=== PATIENT | female | born 1980 | race Caucasian/White ===

== ENCOUNTER 2020-07-29 17:41 | Emergency (ER) | payer OTHER ==
[~2020-07-29] VITALS: Ht 162.6 cm; Wt 81.2 kg
[2020-07-29] MEDS ORDERED: DICL50TA2 PO (17:49)
[2020-07-29] MEDS ORDERED: TOPA50TA8 PO (17:49)
[2020-07-29] MEDS ORDERED: NS 1,000 ML IV ONE (18:15)
[2020-07-29] MEDS ORDERED: ACETAMINOPHEN 500 MG TAB PO ONE (18:15)
[2020-07-29] MEDS ORDERED: METOCLOPRAMIDE INJ 10MG/2ML VIAL (J2765 PER 1) IV ONE (18:15)
[2020-07-29] MEDS ORDERED: diphenhydrAMINE 50MG/ML VIAL (J1200) IV ONE (18:15)
[2020-07-29 18:53] LABS: BASO # 0.1 10^3/uL (0.0-0.2); BASO % 0.9 % (0.0-1.0); EOS # 0.5 10^3/uL (0.0-0.5); EOS % 5.3 % (0.0-3.0); HEMATOCRIT 39.3 % (36.0-47.0); HEMOGLOBIN 12.9 g/dl (12.0-15.5); LYMPH # 3.4 10^3/uL (1.5-5.0); LYMPH % 33.4 % (24.0-44.0); MEAN CORPUSCULAR HEMOGLOBIN 30.2 pg (27.0-33.0); MEAN CORPUSCULAR HGB CONC 32.8 g/dl (32.0-36.5); MONO # 0.6 10^3/uL (0.0-0.8); MONO % 6.1 % (0.0-5.0); NEUTROPHILS # 5.5 10^3/uL (1.5-8.5); PLATELET COUNT, AUTOMATED 229 10^3/uL (150-450); RED BLOOD COUNT 4.27 10^6/uL (4.00-5.40); WHITE BLOOD COUNT 10.2 10^3/uL (4.0-10.0)
[2020-07-29 19:23] LABS: ERYTHROCYTE SEDIMENTATION RATE 9 mm/hr (0-20)
--- NOTE | 2020-07-29 19:43 | REPVR ---
PROCEDURE INFORMATION: Exam: CT Head Without Contrast Exam date and time: 07/29/2020 7:07 PM Age: 39 years old Clinical indication: Pain; Headache; Additional info: Severe headache 3 months TECHNIQUE: Imaging protocol: Computed tomography of the head without contrast. Radiation optimization: All CT scans at this facility use at least one of these dose optimization techniques: automated exposure control; mA and/or kV adjustment per patient size (includes targeted exams where dose is matched to clinical indication); or iterative reconstruction. COMPARISON: No relevant prior studies available. FINDINGS: Limitations: There are no sagittal or coronal reformatted images. Brain: No mass, mass effect, parenchymal hemorrhage, or evidence of large acute infarct. No asymmetric sulcal effacement or loss of the hernández-white interface. No extra-axial hemorrhage. There are calcifications in the basal ganglia bilaterally. Ventricles: There is no hydrocephalus. Basal cisterns are patent. No midline shift. Bones/joints: Unremarkable. No acute fracture. Paranasal sinuses: Visualized sinuses are unremarkable. No fluid levels. Mastoid air cells: Visualized mastoid air cells are well aerated. Soft tissues: Unremarkable. IMPRESSION: 1. No acute intracranial abnormality. Electronically signed by: Gisselle Foote On 07/29/2020 19:43:04 PM
[2020-07-29] MEDS ORDERED: MAG SULF 1GM/100ML (MAG RUN) 1 GM in IV 1 EA IV ONE (19:45)
[2020-07-29] MEDS ORDERED: dexameTHASONE 4 MG/ML 1ML VIAL (J1100 PER 1MG) IV ONE (19:45)
[2020-07-29 20:30] VITALS: BP 106/52
== END 2020-07-29 21:12 | disposition home or self-care (01) ==
LOC: M ED 17:41
DX: G43.119 Migraine with aura, intractable, without status migrainosus (principal); F41.9 Anxiety disorder, unspecified; Z88.1 Allergy status to other antibiotic agents; Z88.2 Allergy status to sulfonamides; F17.210 Nicotine dependence, cigarettes, uncomplicated
CPT/HCPCS: 70450; 80047; 84702; 85025; 85652; 86140; 96361; 96374; 96375; 99284; J1100; J1200; J2765; J3475

== ENCOUNTER → 2020-09-28 | Outpatient (CLI) | payer OTHER ==
[~2020-09-28] MED LIST: DICL50TA2 PO; TOPA50TA8 PO
--- NOTE | 2020-10-16 02:26 | ECWPNPC ---
PATIENT NAME: ITZEL ABEL : 1980 GENDER: FEMALE VISIT DATE: 09/28/2020 DISCHARGE DATE: 09/28/20 1637 VISIT LOCKED DATE TIME: PHYSICIAN: CHARLES MOSS MD RESOURCE: CHARLES MOSS MD REASON FOR APPOINTMENT 1. PRE SEDATE - SPINAL TAP HISTORY OF PRESENT ILLNESS DEPRESSION SCREENING: PHQ-9 LITTLE INTEREST OR PLEASURE IN DOING THINGSSEVERAL DAYS FEELING DOWN, DEPRESSED, OR HOPELESSSEVERAL DAYS TROUBLE FALLING OR STAYING ASLEEP, OR SLEEPING TOO MUCHNEARLY EVERY DAY FEELING TIRED OR HAVING LITTLE ENERGYMORE THAN HALF THE DAYS POOR APPETITE OR OVEREATING MORE THAN HALF THE DAYS FEELING BAD ABOUT YOURSELF-OR THAT YOU ARE A FAILURE OR HAVE LET YOURSELF OR YOUR FAMILY DOWN SEVERAL DAYS TROUBLE CONCENTRATING ON THINGS, SUCH READING THE NEWSPAPER OR WATCHING TELEVISION MORE THAN HALF THE DAYS MOVING OR SPEAKING SO SLOWLY THAT OTHER PEOPLE COULD HAVE NOTICED. OR THE OPPOSITE- BEING SO FIDGETY OR RESTLESS THAT YOU HAVE BEEN MOVING AROUND A LOT MORE THAN USUALSEVERAL DAYS THOUGHTS THAT YOU WOULD BE BETTER OFF , OR OF HURTING YOURSELF IN SOME WAY?NOT AT ALL TOTAL SCORE:13 INTERPRETATIONMODERATE DEPRESSION PHQ-2 (2015 EDITION) LITTLE INTEREST OR PLEASURE IN DOING THINGS?SEVERAL DAYS FEELING DOWN, DEPRESSED, OR HOPELESS?SEVERAL DAYS TOTAL SCORE2 GENERAL: 40-YEAR-OLD FEMALE PATIENT WITH A HISTORY OF CHRONIC HEADACHES. SHE HAS BEEN SUFFERING FROM THIS FOR MANY YEARS. THE PATIENT STATES THAT IN MARCH OF THIS YEAR, SHE HAD A WEIRD SENSATION COME OVER HER AND THE RIGHT SIDE OF HER FACE FELT LIKE IT WENT NUMB AND SHE HAD A TINGLING SENSATION. THAT SAME SENSATION HAS BEEN ON THE RIGHT SIDE OF HER BODY AND SHE HAS HAD A CONSTANT HEADACHE THAT IS DIFFERENT FROM HER NORMAL MIGRAINES AND IT IS CONSTANT THAT CHANGES IN INTENSITY. SHE HAD AN X-RAY OF HER NECK AFTER THAT INSISTENT THAT CAME BACK NORMAL. SHE HAS HAD AN ABNORMAL LUMBAR PUNCTURE IN THE PAST. SHE WAS REFERRED BY DR. CORONADO FOR A SPINAL TAP. THE PATIENT HAS A HISTORY OF A BACK SURGERY AND SHE IS BEING FOLLOWED BY DR. FISHER. PATIENT DENIES UNEXPLAINABLE WEIGHT LOSS, FEVER, CHILLS, NEW CHANGES ON URINARY OR BOWEL CONTROL. FALL RISK SCREENING: SCREENING :NO FALLS REPORTED IN THE LAST YEAR PAIN SCREENING: PATIENT HAS A COMPLAINT OF ACUTE OR CHRONIC PAIN :YES LOCATION OF PAIN:HEAD, LOW BACK, LEG(S) INTENSITY OF PAIN (SCALE OF 1 TO 10):6 WHAT DOES YOUR PAIN FEEL LIKE:ACHING DURATION:CONTINOUS, CONSTANT PAIN IS INCREASED BY:ACTIVITIES PAIN IS DECREASED BY:SITTING TREATMENT/MEDICATIONS USED TO MANAGE PAIN:NONE LEVEL OF RELIEF FROM PAIN TREATMENTS IN THE PAST:0% PAIN HAS INTERFERED WITH THE FOLLOWING:BATHING/DRESSING, WALKING ABILITY, SLEEP, TRANSPORTATION, TOILETING NURSING NOTE: - BEHAVIORAL HEALTH WALK IN SHEET GIVEN TO DR MOSS TO GIVE TO PT. PAIN CENTER INTAKE QUESTIONS: DO YOU HAVE A HISTORY OF MRSA? :NO DO YOU TAKE A BLOOD THINNERS? :NO DO YOU HAVE ANY BLEEDING DISORDERS? :NO ANY NEW NUMBNESS OR WEAKNESS IN YOUR LEGS OR ARMS? :YES RIGHT ARM AND LEG ANY PACEMAKER,DEFIBRILLATOR, OR DORSAL COLUMN STIMULATOR? :NO DO YOU HAVE ANY RASHES OR OPEN SORES? :NO ARE YOU ALLERGIC TO IV DYE? :NO ARE YOU DIABETIC? :NO ANY NEW PROBLEMS WITH YOUR MEDICATIONS? :NO HAVE YOU RECEIVED A VACCINE IN THE PAST 30 DAYS? :NO DO YOU PLAN TO RECEIVE A VACCINE IN THE NEXT 21 DAYS? :NO DO YOU NEED ANY PRESCRIPTION? :NO DO YOU TAKE ANY IMMUNOSUPPRESSIVE MEDICATIONS? :NO IS THERE A CHANCE YOU COULD BE ? :NO ARE YOU BREAST FEEDING? :NO CURRENT MEDICATIONS TAKING TOPAMAX 200 MG TABLET 150MG ORALLY BID TAKING DICLOFENAC POTASSIUM 50 MG TABLET 1 TABLET ORALLY TWICE A DAY MEDICATION LIST REVIEWED AND RECONCILED WITH THE PATIENT PAST MEDICAL HISTORY MIGRAINES PTSD ANXIETY/DEPRESSION TINNITIS SLEEP APNEA ADHD IBS ALLERGIES SULFA (FOR ALLERGY USE ONLY): HIVES - ALLERGY SURGICAL HISTORY LAMINECTOMY OOPHERECTOMY C SECTION D & C FAMILY HISTORY FATHER: UNKNOWN MOTHER: ALIVE 1 SISTER(S) . 2 SON(S) - HEALTHY. SOCIAL HISTORY GENERAL: TOBACCO USE ARE YOU A:CURRENT SMOKER ARE YOU INTERESTED IN QUITTING?THINKING ABOUT QUITTING COUNSELED THE PATIENT ON SMOKING CESSATION, EDUCATION [id number]/20/2020 LATEX QUESTIONNAIRE LATEX ALLERGY : HAVE YOU EVER DEVELOPED ANY TYPE OF REACTION AFTER HANDLING LATEX PRODUCTS SUCH RUBBER GLOVES, CONDOMS, DIAPHRAGMS, BALLOONS, SOCKS, OR UNDERWEAR?NO LATEX ALLERGY : HAVE YOU EVER DEVELOPED ANY TYPE OF REACTION DURING OR AFTER DENTAL APPOINTMENT, VAGINAL/RECTAL EXAMINATION, SURGICAL PROCEDURE, OR ANY OTHER EXPOSURE?NO LATEX RISK : HAVE YOU EVER HAD ANY DIFFICULTY BREATHING OR HIVES AFTER EATING OR HANDLING ANY FRUITS, OR VEGETABLES; SUCH KIWI, BANANAS, STONE FRUITS, OR CHESTNUTSNO LATEX RISK : DO YOU HAVE A PREVIOUS PERSONAL HISTORY OF MORE THAN NINE SURGERIES, SPINA BIFIDA, OR REPEATED CATHERIZATIONS? NO LATEX RISK : ARE YOU FREQUENTLY EXPOSED TO LATEX PRODUCTS IN YOUR OCCUPATION?NO DATE ASKED : 09/28/2020 ALCOHOL SCREENING DID YOU HAVE A DRINK CONTAINING ALCOHOL IN THE PAST YEAR?YES HOW OFTEN DID YOU HAVE A DRINK CONTAINING ALCOHOL IN THE PAST YEAR?MONTHLY OR LESS (1 POINT) HOW MANY DRINKS DID YOU HAVE ON A TYPICAL DAY WHEN YOU WERE DRINKING IN THE PAST YEAR?1 OR 2 (0 POINTS) HOW OFTEN DID YOU HAVE SIX OR MORE DRINKS ON ONE OCCASION IN THE PAST YEAR?NEVER (0 POINTS) POINTS1 INTERPRETATIONNEGATIVE RECREATIONAL DRUG USE DRUG USE?NO LANGUAGE LANGUAGES SPOKEN:BENINESE LEARNING BARRIERS / SPECIAL NEEDS BARRIERS TO LEARNING?NO HEARING IMPAIRED?NO VISION IMPAIRED?NO COGNITIVELY IMPAIRED?NO READINESS TO LEARN?YES LEARNING PREFERENCES?NO LEARNING CAPABILITIES PRESENT?YES EMOTIONAL BARRIERS?NO SPECIAL DEVICES?NO DOMESTIC VIOLENCE DO YOU FEEL SAFE IN YOUR ENVIRONMENT?YES PAIN CLINIC PFS, CLERGY, PUBLIC HEALTH REFERRALS HAS THE PATIENT BEEN EDUCATED REGARDING HIS/HER PLAN OF CARE?YES HAS THE PATIENT BEEN EDUCATED REGARDING PAIN, THE RISK FOR PAIN, THE IMPORTANCE OF EFFECTIVE PAIN MANAGEMENT, AND THE PAIN ASSESSMENT PROCESS?YES ADVANCE DIRECTIVE ADVANCE DIRECTIVE DISCUSSED WITH PATIENT:YES NO, DECLINED HOSPITALIZATION/MAJOR DIAGNOSTIC PROCEDURE CHILDBIRTH REVIEW OF SYSTEMS GLAUCOMA: NOTHYROID DISEASE: NOHYPERTENSION: NOHEART DISEASE: NOLUNG DISEASE: NODIABETES: NOGI DISEASE: NO LIVER DISEASE: NO KIDNEY DISEASE: NOSTERIOD USE: NONEUROLOGICAL DISEASE: YESBACK PROBLEMS: YES, PAINEXTREMITIES: YES, PAINGENITOURINARY: HISTORY OF INCONTINENCE BLEEDING DISORDER: NOASA CLASS: IIAIRWAY CLASS: II. VITAL SIGNS WT 178 LBS, HT 64 IN, BMI 30.55 INDEX, BP 123/58 MM HG, HR 86 /MIN, RR 16 /MIN, TEMP 96.7 F, OXYGEN SAT % 98, SAFE IN ENV? (Y/N) Y, REVIEWED BY: EM. EXAMINATION GENERAL EXAMINATION: THE PATIENT IS ALERT, ORIENTED TIMES THREE AND COOPERATIVE. HEART SHOWS REGULAR RHYTHM, NO MURMURS AND NO GALLOPS. LUNGS ARE CLEAR TO AUSCULTATION. THERE IS SOME TENDERNESS IN THE LOWER BACK AND IN THE PARASPINAL MUSCLE GROUP. 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 THERE IS SOME FLUID CYST SURGICAL DEFECT. THERE IS SOME SUGGESTING OF DISCITIS. ASSESSMENTS NEUROLOGICAL SYMPTOMS - R29.90 (PRIMARY), NEW, WITH RIGHT ARM AND BODY WEAKNESS. MRI SHOWS SOME FLUID IN THE SPINE WITH A RULE OUT OF POSSIBLE DISCITIS. CHRONIC MIGRAINE - G43.709 TREATMENT NEUROLOGICAL SYMPTOMS MEDICATION: VERSED 1MG IV (MIDAZOLAM) (ORDERED FOR 10/28/2020) MEDICATION: FENTANYL CITRATE 50MCG IV (ORDERED FOR 10/28/2020) OXYGEN AT 2 LITERS PER NASAL CANNULA (ORDERED FOR 10/28/2020) IV LACTATED RINGER'S AT [facility] (ORDERED FOR 10/28/2020) CLINICAL NOTES: I DISCUSSED ALTERNATIVES WITH MS. ABEL. THE MRI IS SHOWING SOME DISCITIS AND THE PATIENT STATES THAT SHE SAW A SURGEON IN [place] ABOUT THIS AND HE SAID THERE IS NOTHING TO WORRY ABOUT. SHE STATES THAT DR. FISHER DID EPIDURAL INJECTIONS AFTER THAT. I HAVE SHARED WITH HER THAT I AM DOING A DIAGNOSTIC TEST. I WOULD ADVISE THAT SHE GETS UPDATED MRI OR FOLLOW WITH HER OTHER PROVIDERS. I AM NOT INJECTING AND I AM TAKING A SAMPLE SO IF SHE FEELS COMFORTABLE WE CAN MOVE FORWARD FOR DIAGNOSTIC PURPOSES. I DISCUSSED WITH HER THAT SHE SHOULD FOLLOW UP WIT DR. FISHER. THE PATIENT AGREES WITH MOVING FORWARD. I WILL NEED A NEW ORDER WITH MORE CLARITY OF A DIAGNOSTIC THE ORIGINAL ONE HAS A DIAGNOSIS OF ABNORMAL LUMBAR PUNCTURE IN THE PAST. WE NEED A DIAGNOSIS THAT REFLECTS THE NEUROLOGICAL SYMPTOMS. I WILL PERFORM THIS IN THE AREA ABOVE THE SCAR AT APPROXIMATELY L3-L4 OR L4-L5, WITH X-RAY IF NEEDED, WITH IV SEDATION DUE TO ANXIETY AND DISCOMFORT ASSOCIATED WITH THE PROCEDURE. I EXPLAINED TO THE PATIENT THAT I DO NOT RECEIVE THE RESULTS OF THIS TEST AND THAT SHE NEEDS TO FOLLOW WITH DR. CORONADO FOR THE RESULTS. THE PATIENT HAS A HISTORY OF DEPRESSION AND THE ASSESSMENT DONE BY THE NURSE SHOWS THAT SHE HAS MODERATE DEPRESSION. THE PATIENT IS NOT SUICIDAL AND SHE STATES THAT SHE HAS ADEQUATE FOLLOWUP WITH HER DOCTOR FOR THE DEPRESSION. . PROCEDURE CODES 71024 OFFICE/OUTPATIENT VISIT EST [id number] ESTABILISHED PATIENT SCIENTOLOGIST FACILITY CHARGE DISPOSITION & COMMUNICATION FOLLOW UP OKAY TO BOOK, NEED NEW ORDER FROM DR. CORONADO (REASON: SPINAL TAP) ELECTRONICALLY SIGNED BY CHARLES MOSS MD, MD ON 10/15/2020 AT 06:09 PM EST DISCLAIMER : THIS IS A VISIT SUMMARY EXTRACTED FROM THE [employer] CHART. IT IS NOT A COPY OF THE [employer] PROGRESS NOTE. MTDD
== END ==
LOC: M PAIN 14:30
PROVIDERS: ATTEND Anesthesiology
DX: R29.90 Unspecified symptoms and signs involving the nervous system (principal); G43.709 Chronic migraine without aura, not intractable, without status migrainosus; F43.10 Post-traumatic stress disorder, unspecified; F41.9 Anxiety disorder, unspecified; F32.9 Major depressive disorder, single episode, unspecified; G47.30 Sleep apnea, unspecified; K58.9 Irritable bowel syndrome, unspecified; F17.210 Nicotine dependence, cigarettes, uncomplicated; Z79.899 Other long term (current) drug therapy; Z88.2 Allergy status to sulfonamides

== ENCOUNTER → 2020-10-11 | Outpatient (CLI) | payer OTHER | LOC: M LABSMTC 10:52 | PROVIDERS: ATTEND Anesthesiology | DX: Z20.828 Contact with and (suspected) exposure to other viral communicable diseases (principal) ==

== ENCOUNTER → 2020-10-16 | Outpatient (CLI) | payer OTHER ==
[~2020-10-16] MED LIST changes: +LIDOCAINE 1% SDV 30ML VIAL As Ordered ONE; +MIDAZOLAM INJ 2MG/2ML VIAL (J2250 PER 1MG) As Ordered ONE; +fentaNYL 100 MCG/2 ML INJECTION (J3010) As Ordered ONE
[2020-10-16 11:02] LABS: APPEARANCE, CSF CLEAR (CLEAR); COLOR, CSF COLORLESS (COLORLESS); CSF TUBE# CELL CNT TUBE 3
[2020-10-16 11:20] LABS: CSF TUBE# GLU TUBE 1; CSF TUBE# TP TUBE 1; GLUCOSE CSF 57 MG/DL (40-75); TOTAL PROTEIN,CSF 43 MG/DL (15-45)
--- NOTE | 2020-10-18 01:03 | ECWPNPC ---
PATIENT NAME: ITZEL ABEL : 1980 GENDER: FEMALE VISIT DATE: 10/16/2020 DISCHARGE DATE: 10/16/20 1047 VISIT LOCKED DATE TIME: PHYSICIAN: CHARLES MOSS MD RESOURCE: CHARLES MOSS MD REASON FOR APPOINTMENT 1. SPINAL TAP HISTORY OF PRESENT ILLNESS GENERAL: -. FALL RISK SCREENING: SCREENING :NO FALLS REPORTED IN THE LAST YEAR PAIN SCREENING: PATIENT HAS A COMPLAINT OF ACUTE OR CHRONIC PAIN :YES LOCATION OF PAIN:HEAD, NECK, LOW BACK INTENSITY OF PAIN (SCALE OF 1 TO 10):6 WHAT DOES YOUR PAIN FEEL LIKE:ACHING, CONTINOUS, TENDER, THROBBING, SORE DURATION:CONTINOUS, CONSTANT PAIN IS INCREASED BY:OTHERS PAIN IS DECREASED BY:USE OF PAIN MEDICATIONS WITHOUT RELIEF NURSING NOTE: -. PAIN CENTER INTAKE QUESTIONS: DO YOU HAVE A HISTORY OF MRSA? :NO DO YOU TAKE A BLOOD THINNERS? :NO DO YOU HAVE ANY BLEEDING DISORDERS? :NO ANY NEW NUMBNESS OR WEAKNESS IN YOUR LEGS OR ARMS? :NO ANY PACEMAKER,DEFIBRILLATOR, OR DORSAL COLUMN STIMULATOR? :NO DO YOU HAVE ANY RASHES OR OPEN SORES? :NO ARE YOU ALLERGIC TO IV DYE? :NO ARE YOU DIABETIC? :NO ANY NEW PROBLEMS WITH YOUR MEDICATIONS? :NO HAVE YOU RECEIVED A VACCINE IN THE PAST 30 DAYS? :NO DO YOU PLAN TO RECEIVE A VACCINE IN THE NEXT 21 DAYS? :NO DO YOU TAKE ANY IMMUNOSUPPRESSIVE MEDICATIONS? :NO ANY HISTORY OF SEIZURES? :NO ANY HISTORY OF CARDIAC ISSUES OR EVENTS? :NO DO YOU HAVE SLEEP APNEA? :YES DO YOU WEAR A CPAP?YES ANY RECENT HEAD INJURY? :NO DO YOU HAVE ANY NEW INFECTIONS? :NO IS THERE A CHANCE YOU COULD BE ? :NO ARE YOU BREAST FEEDING? :NO WHEN DID YOU LAST EAT? : -10/15 1900 WHEN DID YOU LAST DRINK? : -10/16 0700 WHAT DID YOU LAST DRINK? : -WATER NAME OF PERSON DRIVING YOU HOME? : -YUKO DO YOU HAVE ANY OTHER QUESTIONS OR CONCERNS? : - CURRENT MEDICATIONS UNKNOWN TOPAMAX 100 MG TABLET 1.5 TABLET ORALLY BID UNKNOWN DICLOFENAC POTASSIUM 50 MG TABLET 1 TABLET ORALLY TWICE A DAY, NOTES: NONE RECENTLY MEDICATION LIST REVIEWED AND RECONCILED WITH THE PATIENT PAST MEDICAL HISTORY MIGRAINES PTSD ANXIETY/DEPRESSION TINNITIS SLEEP APNEA ADHD IBS ALLERGIES SULFA (FOR ALLERGY USE ONLY): HIVES - ALLERGY SURGICAL HISTORY LAMINECTOMY OOPHERECTOMY C SECTION D & C FAMILY HISTORY FATHER: UNKNOWN MOTHER: ALIVE 1 SISTER(S) - HEALTHY. 2 SON(S) - HEALTHY. SOCIAL HISTORY GENERAL: TOBACCO USE ARE YOU A:CURRENT SMOKER ARE YOU INTERESTED IN QUITTING?THINKING ABOUT QUITTING COUNSELED THE PATIENT ON SMOKING CESSATION, EDUCATION [id number]/20/2020 LATEX QUESTIONNAIRE LATEX ALLERGY : HAVE YOU EVER DEVELOPED ANY TYPE OF REACTION AFTER HANDLING LATEX PRODUCTS SUCH RUBBER GLOVES, CONDOMS, DIAPHRAGMS, BALLOONS, SOCKS, OR UNDERWEAR?NO LATEX ALLERGY : HAVE YOU EVER DEVELOPED ANY TYPE OF REACTION DURING OR AFTER DENTAL APPOINTMENT, VAGINAL/RECTAL EXAMINATION, SURGICAL PROCEDURE, OR ANY OTHER EXPOSURE?NO LATEX RISK : HAVE YOU EVER HAD ANY DIFFICULTY BREATHING OR HIVES AFTER EATING OR HANDLING ANY FRUITS, OR VEGETABLES; SUCH KIWI, BANANAS, STONE FRUITS, OR CHESTNUTSNO LATEX RISK : DO YOU HAVE A PREVIOUS PERSONAL HISTORY OF MORE THAN NINE SURGERIES, SPINA BIFIDA, OR REPEATED CATHERIZATIONS? NO LATEX RISK : ARE YOU FREQUENTLY EXPOSED TO LATEX PRODUCTS IN YOUR OCCUPATION?NO DATE ASKED : 10/16/2020 ALCOHOL SCREENING DID YOU HAVE A DRINK CONTAINING ALCOHOL IN THE PAST YEAR?YES HOW OFTEN DID YOU HAVE SIX OR MORE DRINKS ON ONE OCCASION IN THE PAST YEAR?NEVER (0 POINTS) HOW MANY DRINKS DID YOU HAVE ON A TYPICAL DAY WHEN YOU WERE DRINKING IN THE PAST YEAR?1 OR 2 (0 POINTS) HOW OFTEN DID YOU HAVE A DRINK CONTAINING ALCOHOL IN THE PAST YEAR?MONTHLY OR LESS (1 POINT) POINTS1 INTERPRETATIONNEGATIVE RECREATIONAL DRUG USE DRUG USE?NO LANGUAGE LANGUAGES SPOKEN:ROMANSH LEARNING BARRIERS / SPECIAL NEEDS BARRIERS TO LEARNING?NO HEARING IMPAIRED?NO VISION IMPAIRED?NO COGNITIVELY IMPAIRED?NO READINESS TO LEARN?YES LEARNING PREFERENCES?NO LEARNING CAPABILITIES PRESENT?YES EMOTIONAL BARRIERS?NO SPECIAL DEVICES?NO DOMESTIC VIOLENCE DO YOU FEEL SAFE IN YOUR ENVIRONMENT?YES PAIN CLINIC PFS, CLERGY, PUBLIC HEALTH REFERRALS HAS THE PATIENT BEEN EDUCATED REGARDING HIS/HER PLAN OF CARE?YES HAS THE PATIENT BEEN EDUCATED REGARDING PAIN, THE RISK FOR PAIN, THE IMPORTANCE OF EFFECTIVE PAIN MANAGEMENT, AND THE PAIN ASSESSMENT PROCESS?YES ADVANCE DIRECTIVE ADVANCE DIRECTIVE DISCUSSED WITH PATIENT:YES NO, DECLINED HOSPITALIZATION/MAJOR DIAGNOSTIC PROCEDURE CHILDBIRTH VITAL SIGNS WT 178.4 LBS, HT 64 IN, BMI 30.62 INDEX, BP 118/60 MM HG, HR 79 /MIN, RR 18 /MIN, TEMP 97.4 F, OXYGEN SAT % 97%, SAFE IN ENV? (Y/N) YES, NA INITIALS AW 0831, REVIEWED BY: VESTA RN. EXAMINATION GENERAL EXAMINATION: A HISTORY AND PHYSICAL EXAM ON THE PATIENT WAS DONE ON 09/28/2020 (DATE OF ORIGINAL ASSESSMENT) IN PREPARATION OF SURGERY/PROCEDURE. I HAVE NOW REASSESSED THIS PATIENT'S HEALTH STATUS AND PERFORMED AN UPDATED EXAM TODAY. ALL CHANGES IN THE PATIENT'S HISTORY, PHYSICAL EXAM, PRE-EXISTING CONDITONS, AND INDICATIONS/CONTRAINDICATIONS TO THE PLANNED PROCEDURE AND ANESTHESIA ARE DOCUMENTED AND EVALUATED BELOW. I ATTEST TO THE ADEQUACY AND APPROPRIATENESS OF MY ASSESSMENT, AND CONFIRM THE NECESSITY FOR THE PLANNED PROCEDURE. THE PATIENT IS ALERT, ORIENTED TIMES THREE AND COOPERATIVE. HEART SHOWS REGULAR RHYTHM, NO MURMURS AND NO GALLOPS. LUNGS ARE CLEAR TO AUSCULTATION. 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 [facility] 10/16/2020 9:21:54 AM > VERIFIED DILEONAMANISH,SAUNDRA 10/16/2020 09:53:04 AM - SECOND DOSE ORDERED, VERIFIED WITH DR. AJAY WILLARDPJ 10/16/2020 10:30:04 AM > 1ST DOSE ADMINISTERED AT 0949. 2ND DOSE ADMINISTERED AT 0953. MEDICATION: FENTANYL CITRATE 50MCG IV SUDHEERPJ 10/16/2020 9:20:13 AM > LOT# [id number] EXP: 05/2022. [facility] 10/16/2020 9:22:33 AM > VERIFIED DILEONARDO,SAUNDRA 10/16/2020 09:54:58 AM - SECOND DOSE ORDERED, VERIFIED WITH DR. AJAY WILLARDPJ 10/16/2020 10:30:38 AM > 1ST DOSE ADMINISTRED AT 0951. 2ND DOSE ADMINISTERED AT 0955. OXYGEN AT 2 LITERS PER NASAL CANNULASUDHEERPJ 10/16/2020 10:31:50 AM > ON: 0938 OFF: 1018. [facility] 9:19:11 AM > 22G OBTAINED IN RIGHT FOREARM BY Carl WILLARD RN; ON SECOND ATTEMPT, FIRST ATTEMPT IN LEFT HAND UNSUCESSFUL CLEAD DSD APPLIED, NO REDNESS OR SWELLING NOTED. PJ WILLARD 10/16/2020 10:32:35 AM > TOTAL OF 300CCS GIVEN PJ WILLARD 10/16/2020 10:33:21 AM > CLEAR. NOTES: DISCHARGE INSTRUCTIONS REVIEWED WITH PATIENT AND SHE VERBALIZES UNDERSTANDING. DISCHARGE INSTRUCTIONS INCLUDING SAFETY CONCERNS RELATED TO IV SEDATION REVIEWED WITH PATIENT'S WHO VERBALIZED UNDERSTANDING. PROCEDURES PAIN NURSING RECORD PRE-PROCEDURE IV SITE RIGHT FOREARM, IV STARTED # 22, IV STARTED BY: Carl WILLARD RN, IV ATTEMPTS 2 PROCEDURE IN ROOM 0935, PHYSICIAN IN ROOM 0947, START 1001, FINISH 1008, PHYSICIAN OUT OF ROOM 1012, OUT OF ROOM 1020, STEROID N/A, O2 NC 2 LPM @ 0938. 02 OFF 1018, ECG NORMAL SINUS, PATIENT SHIELDED NO, SAFETY STRAP NO, PREP BETADINE BY DR MOSS, IV INFUSED LACTATED RINGERS 300CC INFUSED, DRESSING TEGADERM BY DR MOSS LOC: 1. ALERT, ORIENTED, [facility] 10/16/2020 9:56:19 AM > , 2. DROWSY, RESPONDS APPROPRIATELY , [facility] 10/16/2020 10:26:10 AM > , 1. ALERT, ORIENTED RESP: 1. REGULAR, NO DYSPNEA , [facility] SANDY 10/16/2020 10:01:55 AM > , 1. REGULAR, NO DYSPNEA , [facility] 10/16/2020 10:26:24 AM > , 1. REGULAR, NO DYSPNEA, COLOR: 1. PINK , [facility] 10/16/2020 10:02:20 AM > , 1. PINK , [facility] 10/16/2020 10:26:44 AM > , 1. PINK SKIN: 1. WARM, DRY , [facility] 10/16/2020 10:02:28 AM > , 1. WARM, DRY , [facility] 10/16/2020 10:26:52 AM > , 1. WARM, DRY POSITION: 3. LATERAL LEFT VITALS: MAXWELL SANDY 10/16/2020 9:40:26 AM > 121/69 HR 86 16 100% ON 2L N/C , [facility] 10/16/2020 9:46:11 AM > 116/70 HR 73 16 100% ON 2L N/C [facility] 10/16/2020 9:50:24 AM > 124/81 HR 77 16 99% 2L N/CDU MARY 10/16/2020 9:55:32 AM > 114/88 HR 84 16 98% 2L N/C [facility] MARY 10/16/2020 10:00:52 AM > 127/80 HR 79 16 97% 2L N/C [facility] 10/16/2020 10:05:26 AM > 113/63 HR 89 16 99% 2L N/C [facility] 10/16/2020 10:10:35 AM > 113/75 HR 75 16 96% 2L N/C [facility] 10/16/2020 10:15:44 AM > 107/61 HR 68 16 99% 2L N/C [facility] 10/16/2020 10:27:30 AM > 135/79 84 16 97% R/A D/C V/S DISCHARGE: POST PAIN 6, DRESSING SITE DRY AND INTACT, IV DISCONTINUED, SITE CLEAR, CATHETER INTACT, GAIT STEADY, TEACHING COMPLETED, PATIENT ACKNOWLEDGES UNDERSTANDING YES, PATIENT DISCHARGED AT 1055 PATIENT TAKEN TO MEET AT MEDICAL OFFICE BUILDING DOOR VIA WHEELCHAIR. GAIT STEADY WHEN TRANSFERRING TO VEHICLE. PRE PROCEDURE DIAGNOSIS DEMYELINATING DISEASE OF CENTRAL NERVOUS SYSTEM PROCEDURE SPINAL TAP PRE PROCEDURE NOTE THE PATIENT HAS A HISTORY OF DEMYELINATING DISEASE OF THE CENTRAL NERVOUS SYSTEM. THE PATIENT WAS REFERRED HERE BY DR. CORONADO FOR A SPINAL TAP TO RULE OUT MULTIPLE SCLEROSIS. THE PATIENT WAS INTERVIEWED, EXAMINED AND TREATMENT QUESTIONNAIRES REVIEWED. THE PROCEDURE, RISKS AND BENEFITS WERE DISCUSSED WITH THE PATIENT. THE PATIENT WOULD LIKE TO MOVE FORWARD WITH IV SEDATION DUE TO ANXIETY AND DISCOMFORT ASSOCIATED WITH THE PROCEDURE. THE PATIENT DENIES UNEXPLAINABLE, WEIGHT LOSS, FEVER, CHILLS, OR CHANGES IN URINARY OR BOWEL CONTROL. THE PATIENT IS COVID-19 NEGATIVE DESCRIPTION OF PROCEDURE AFTER CONSENT WAS TAKEN, THE PATIENT WAS BROUGHT TO THE PROCEDURE ROOM AND PLACED IN THE LEFT LATERAL POSITION. THE LUMBOSACRAL AREA WAS CLEANED WITH BETADINE SOLUTION AND DRAPED ASEPTICALLY. THE PROCEDURE WAS DONE UNDER STERILE CONDITIONS. A TIMEOUT WAS PERFORMED WHERE LATERALITY AND THE SITE OF THE PROCEDURE WERE CHECKED AND CONFIRMED WITH EVERYONE IN THE ROOM. LOCAL INFILTRATE 1 % LIDOCAINE WAS USED TO NUMB THE SKIN AND SUBCUTANEOUS TISSUE BELOW IT AT THE APPROXIMATELY THE L4-L5 INTERSPACE. A 22-GAUGE QUINCKE NEEDLE WAS ADVANCED UNTIL THE DURA WAS FELT AND CSF WAS FREE-FLOWING. THERE WAS NO BLOOD RETURN ENCOUNTERED. NO PARESTHESIA WAS ENCOUNTERED. OPENING PRESSURE WAS MEASURED AT 26 CM OF WATER. 4 VIALS OF 3 ML OF CSF WAS COLLECTED. CSF WAS CLEAR. CSF WAS SENT FOR STUDIES ORDERED BY THE REFERRING PHYSICIAN. VITAL SIGNS WERE STABLE. THERE WERE NO COMPLICATIONS. ESTIMATED BLOOD LOSS WAS LESS THAN 5 ML. THE PATIENT WAS SENT TO THE RECOVERY ROOM WHERE HE WAS MOVING HIS EXTREMITIES AND DOING WELL. THE PATIENT RECEIVED VERSED 2 MG AND FENTANYL 100 MCG IV IN DIVIDED DOSES. FACE TO FACE START TIME: 948 FACE TO FACE END TIME: 1010 TOTAL FACE TO FACE TIME: 21 MINUTES POST PROCEDURE NOTE I DISCUSSED THE PROCEDURE WITH THE PATIENT. I WILL SEND THE CSF FOR STUDIES. THE PATIENT WILL FOLLOW UP WITH DR. CORONADO. THE PATIENT WILL CALL OUR OFFICE NEEDED. I, SAUNDRA MURPHY, DOCUMENTED THE ABOVE INFORMATION ACTING A SCRIBE FOR DR. MOSS. I HAVE REVIEWED THE ABOVE DOCUMENT, WRITTEN BY GOKUL MCNEAL, AND I VERIFY THAT IT IS ACCURATE. PROCEDURE CODES 59243 LUMBAR PUNCTURE 67136 MOD SED SAME PHYS/QHP 5/>YRS DISPOSITION & COMMUNICATION FOLLOW UP FOLLOW UP WITH NEUROLOGIST (REASON: CALL OUR OFFICE IF NEEDED) ELECTRONICALLY SIGNED BY CHARLES MOSS MD, MD ON 10/17/2020 AT 11:11 AM EST DISCLAIMER : THIS IS A VISIT SUMMARY EXTRACTED FROM THE [employer] CHART. IT IS NOT A COPY OF THE [employer] PROGRESS NOTE. MTDKimber
== END ==
LOC: M PAIN 08:00
PROVIDERS: ATTEND Anesthesiology
DX: G37.9 Demyelinating disease of central nervous system, unspecified (principal); G43.909 Migraine, unspecified, not intractable, without status migrainosus; F43.10 Post-traumatic stress disorder, unspecified; F41.9 Anxiety disorder, unspecified; F32.9 Major depressive disorder, single episode, unspecified; F17.210 Nicotine dependence, cigarettes, uncomplicated; G47.30 Sleep apnea, unspecified; K58.9 Irritable bowel syndrome, unspecified; Z79.899 Other long term (current) drug therapy; Z88.2 Allergy status to sulfonamides
CPT/HCPCS: 36415; 62270; 82784; 82945; 83916; 84157; 87070; 87102; 87205; 87252; 87483; 88108; 88313; 89050; 99152; J2250; J3010

== ENCOUNTER → 2020-10-19 | Outpatient (CLI) | payer OTHER ==
[~2020-10-19] MED LIST changes: -LIDOCAINE 1% SDV 30ML VIAL As Ordered ONE; -MIDAZOLAM INJ 2MG/2ML VIAL (J2250 PER 1MG) As Ordered ONE; -fentaNYL 100 MCG/2 ML INJECTION (J3010) As Ordered ONE
--- NOTE | 2020-10-19 15:14 | REPMRS ---
Patient History The patient states she has not had a clinical breast exam in over a year. Baseline Mammogram No known family history of cancer. Reductions of both breasts, 2001. Taking hormonal contraceptives for 4 years. Digital Woman Screen Mammo: October 19, 2020 - Exam #: [id number] Bilateral CC and MLO view(s) were taken. Technologist: Lyla Hathaway, Technologist No prior studies available for comparison. FINDINGS: There are scattered fibroglandular densities. The Volpara volumetric breast density category is: B. There is no evidence of dominant mass, architectural distortion, or grouped microcalcification typical of malignancy. 3-D tomosynthesis shows no additional findings. Assessment: BI-RADS/ACR category 1 mammogram. Negative Mammogram. Recommendation Routine screening mammogram of both breasts in 1 year (for women over age 40). This patient's [facility] Lifetime Breast Cancer RIsk is estimated at 12.2 %. This mammogram was interpreted with the aid of an FDA-approved computer-aided dectection system. Electronically Signed By: Madhav Bobby MD 10/19/20 8494
== END ==
LOC: M WHC 14:11
PROVIDERS: ATTEND Student in an Organized Health Care Education/Training Program
DX: Z12.31 Encounter for screening mammogram for malignant neoplasm of breast (principal); Z79.3 Long term (current) use of hormonal contraceptives

== ENCOUNTER → 2020-11-16 | Outpatient (CLI) | payer OTHER ==
[~2020-11-16] MED LIST changes: +PROHANCE 279.3MG/ML 15ML VIAL As Ordered ONE
--- NOTE | 2020-11-16 15:56 | REP ---
INDICATION: LUMBAR RADICULOPATHY. Low back pain with right leg pain. Patient reports history of prior back surgery 2014. COMPARISON: No available priors.. TECHNIQUE: Sagittal and axial T1 and T2-weighted scans are acquired in the usual fashion with and without fat saturation. Sequences include spin echo, turbo spin-echo, and STIR imaging sequences. FINDINGS: Lumbar vertebral body heights are preserved. Alignment is normal. There is a hemangioma in the L4 vertebral body measuring 1.9 cm in greatest diameter along the right side of the vertebral body. Cortical and medullary bone signal intensity are otherwise normal. No extra vertebral abnormality is observed. Tip of the conus medullaris is normal in position and appearance at T12-L1. There is mild central disc bulging of the T11-12 disc effacing the ventral subarachnoid space but not contacting the lower thoracic cord. At L1-L2, L2-L3, and L3-L4, axial and sagittal images show no disc herniation, spinal stenosis, or foraminal narrowing. At L4-5, there is degenerative narrowing and decreased signal intensity in the disc consistent with degenerative disc disease. There is minimal diffuse bulging of the posterior disc margin. No spinal stenosis is seen. No neural foraminal encroachment is appreciated. At L5-S1, there is degenerative narrowing and desiccation in the disc with some reactive marrow changes on either side of the L5-S1 disc. There is evidence of a prior left L5-S1 laminectomy with postoperative change in the dorsal extra-spinal soft tissues here. Micrometallic artifact is seen. There is a right posterior broad-based focal disc protrusion which contacts the right S1 nerve root. No observable thecal sac compression is seen. There is some contrast enhancement adjacent to this disc protrusion. No other significant contrast enhancement is appreciated. No neural foraminal encroachment. IMPRESSION: Degenerative disc disease at L4-5 and L5-S1. There is evidence of a left L5-S1 laminectomy. A broad-based right posterior disc protrusion is seen at L5-S1 contacting the right S1 nerve root. <Electronically signed by Madhav Bobby > 11/16/20 [id number]
== END ==
LOC: M RAD 13:29
PROVIDERS: ATTEND Nurse Practitioner Family
DX: M51.16 Intervertebral disc disorders with radiculopathy, lumbar region (principal)
CPT/HCPCS: 72158; A9576

== ENCOUNTER → 2021-03-15 | Outpatient (CLI) | payer OTHER ==
[~2021-03-15] MED LIST changes: -PROHANCE 279.3MG/ML 15ML VIAL As Ordered ONE
--- NOTE | 2021-03-19 02:09 | ECWPNPC ---
PATIENT NAME: ITZEL ABEL : 1980 GENDER: FEMALE VISIT DATE: 03/15/2021 DISCHARGE DATE: 03/15/21 1235 VISIT LOCKED DATE TIME: PHYSICIAN: JAMEY MENCHACA RESOURCE: JAMEY MENCHACA REASON FOR APPOINTMENT 1. LOWER BACK PAIN AND LEFT LEG RADICULOPATHY HISTORY OF PRESENT ILLNESS DEPRESSION SCREENING: PHQ-9 LITTLE INTEREST OR PLEASURE IN DOING THINGSSEVERAL DAYS FEELING DOWN, DEPRESSED, OR HOPELESSSEVERAL DAYS TROUBLE FALLING OR STAYING ASLEEP, OR SLEEPING TOO MUCHNEARLY EVERY DAY FEELING TIRED OR HAVING LITTLE ENERGYNEARLY EVERY DAY POOR APPETITE OR OVEREATING MORE THAN HALF THE DAYS FEELING BAD ABOUT YOURSELF-OR THAT YOU ARE A FAILURE OR HAVE LET YOURSELF OR YOUR FAMILY DOWN SEVERAL DAYS TROUBLE CONCENTRATING ON THINGS, SUCH READING THE NEWSPAPER OR WATCHING TELEVISION MORE THAN HALF THE DAYS MOVING OR SPEAKING SO SLOWLY THAT OTHER PEOPLE COULD HAVE NOTICED. OR THE OPPOSITE- BEING SO FIDGETY OR RESTLESS THAT YOU HAVE BEEN MOVING AROUND A LOT MORE THAN USUALNOT AT ALL THOUGHTS THAT YOU WOULD BE BETTER OFF , OR OF HURTING YOURSELF IN SOME WAY?NOT AT ALL TOTAL SCORE:13 INTERPRETATIONMODERATE DEPRESSION PHQ-2 (2015 EDITION) LITTLE INTEREST OR PLEASURE IN DOING THINGS?SEVERAL DAYS FEELING DOWN, DEPRESSED, OR HOPELESS?SEVERAL DAYS TOTAL SCORE2 GENERAL: HPI 40-YEAR-OLD FEMALE IN FOR INITIAL PAIN CONSULT REGARDING LOW BACK PAIN AND RADICULOPATHY. PATIENT RATES HER PAIN CURRENTLY AT A 6 OUT OF 10 AND DESCRIBES IT ACHING, CONTINUOUS, SHARP, AND STABBING. PATIENT ADMITS THE PAIN HAS BEEN PRESENT FOR QUITE SOME TIME NOW.. - - -. FALL RISK SCREENING: SCREENING SLIPPED ON STAIRS, NO MAJOR INJURIES. PAIN SCREENING: PATIENT HAS A COMPLAINT OF ACUTE OR CHRONIC PAIN :YES LOCATION OF PAIN:LOW BACK, LEG(S) INTENSITY OF PAIN (SCALE OF 1 TO 10):6 WHAT DOES YOUR PAIN FEEL LIKE:ACHING, CONTINOUS, SHARP, STABBING DULL ACHE DURATION:CONTINOUS, CONSTANT, ALL DAY PAIN IS INCREASED BY:ACTIVITIES, PROLONGED STANDING, OTHERS BENDING, PROLONGED SITTING PAIN IS DECREASED BY:OTHERS LAYING DOWN NURSING NOTE: - - -. PAIN CENTER INTAKE QUESTIONS: DO YOU HAVE A HISTORY OF MRSA? :NO DO YOU TAKE A BLOOD THINNERS? :NO DO YOU HAVE ANY BLEEDING DISORDERS? :NO ANY NEW NUMBNESS OR WEAKNESS IN YOUR LEGS OR ARMS? :YES NUMBNESS/TINGLING TO RIGHT SIDE FROM HEAD TO TOES. WEAKNESS IN LEFT LEG AT TIMES. ANY PACEMAKER,DEFIBRILLATOR, OR DORSAL COLUMN STIMULATOR? :NO DO YOU HAVE ANY RASHES OR OPEN SORES? :NO ARE YOU ALLERGIC TO IV DYE? :NO ARE YOU DIABETIC? :NO ANY NEW PROBLEMS WITH YOUR MEDICATIONS? :NO HAVE YOU RECEIVED A VACCINE IN THE PAST 30 DAYS? :NO DO YOU PLAN TO RECEIVE A VACCINE IN THE NEXT 21 DAYS? :NO DO YOU NEED ANY PRESCRIPTION? :NO DO YOU TAKE ANY IMMUNOSUPPRESSIVE MEDICATIONS? :NO IS THERE A CHANCE YOU COULD BE ? :NO ARE YOU BREAST FEEDING? :NO CURRENT MEDICATIONS TAKING EMGALITY 120 MG/ML SOLUTION PREFILLED SYRINGE 1 ML SUBCUTANEOUS MONTHLY TAKING MELATONIN 5 MG TABLET 1 TABLET IN THE EVENING ORALLY ONCE A DAY NEEDED TAKING TOPAMAX 100 MG TABLET 1.5 TABLET ORALLY BID TAKING DICLOFENAC POTASSIUM 50 MG TABLET 1 TABLET ORALLY DAILY NEEDED MEDICATION LIST REVIEWED AND RECONCILED WITH THE PATIENT PAST MEDICAL HISTORY MIGRAINES PTSD ANXIETY/DEPRESSION TINNITIS SLEEP APNEA ADHD IBS CHRONIC BACK PAIN URINARY INCONTINENCE ALLERGIES SULFA (FOR ALLERGY USE ONLY): HIVES - ALLERGY SURGICAL HISTORY LAMINECTOMY OOPHERECTOMY C SECTION D & C FAMILY HISTORY FATHER: UNKNOWN MOTHER: ALIVE 1 SISTER(S) - HEALTHY. 2 SON(S) - HEALTHY. SISTER - PSEUDOTUMOR SYNDROME. SOCIAL HISTORY GENERAL: TOBACCO USE ARE YOU A:CURRENT SMOKER ARE YOU INTERESTED IN QUITTING?THINKING ABOUT QUITTING PATIENT HAS CUT BACK RECENTLY COUNSELED THE PATIENT ON SMOKING CESSATION, EDUCATION [id number]/07/2021 HOW MANY CIGARETTES A DAY DO YOU SMOKE?5 OR LESS HOW SOON AFTER YOU WAKE UP DO YOU SMOKE YOUR FIRST CIGARETTE?6-30 MIN HOW OFTEN DO YOU SMOKE CIGARETTES?EVERY DAY PATIENT COUNSELED ON THE DANGERS OF TOBACCO USE AND URGED TO QUIT:03/15/2021 LATEX QUESTIONNAIRE LATEX ALLERGY : HAVE YOU EVER DEVELOPED ANY TYPE OF REACTION AFTER HANDLING LATEX PRODUCTS SUCH RUBBER GLOVES, CONDOMS, DIAPHRAGMS, BALLOONS, SOCKS, OR UNDERWEAR?NO LATEX ALLERGY : HAVE YOU EVER DEVELOPED ANY TYPE OF REACTION DURING OR AFTER DENTAL APPOINTMENT, VAGINAL/RECTAL EXAMINATION, SURGICAL PROCEDURE, OR ANY OTHER EXPOSURE?NO LATEX RISK : HAVE YOU EVER HAD ANY DIFFICULTY BREATHING OR HIVES AFTER EATING OR HANDLING ANY FRUITS, OR VEGETABLES; SUCH KIWI, BANANAS, STONE FRUITS, OR CHESTNUTSNO LATEX RISK : DO YOU HAVE A PREVIOUS PERSONAL HISTORY OF MORE THAN NINE SURGERIES, SPINA BIFIDA, OR REPEATED CATHERIZATIONS? NO LATEX RISK : ARE YOU FREQUENTLY EXPOSED TO LATEX PRODUCTS IN YOUR OCCUPATION?NO DATE ASKED : 03/15/2021 SENSITIVITY TO SOME BANDAGES USED POSTOPERATIVELY. ALCOHOL SCREENING DID YOU HAVE A DRINK CONTAINING ALCOHOL IN THE PAST YEAR?YES HOW OFTEN DID YOU HAVE SIX OR MORE DRINKS ON ONE OCCASION IN THE PAST YEAR?NEVER (0 POINTS) HOW MANY DRINKS DID YOU HAVE ON A TYPICAL DAY WHEN YOU WERE DRINKING IN THE PAST YEAR?1 OR 2 (0 POINTS) HOW OFTEN DID YOU HAVE A DRINK CONTAINING ALCOHOL IN THE PAST YEAR?MONTHLY OR LESS (1 POINT) POINTS1 INTERPRETATIONNEGATIVE RECREATIONAL DRUG USE DRUG USE?NO LANGUAGE LANGUAGES SPOKEN:WOLOF LEARNING BARRIERS / SPECIAL NEEDS CHANGE FROM LAST VISIT?NO BARRIERS TO LEARNING?NO HEARING IMPAIRED?NO VISION IMPAIRED?NO COGNITIVELY IMPAIRED?NO READINESS TO LEARN?YES LEARNING PREFERENCES?NO LEARNING CAPABILITIES PRESENT?YES EMOTIONAL BARRIERS?NO SPECIAL DEVICES?NO CHALKER SOLES NEEDED?NO DOMESTIC VIOLENCE DO YOU FEEL SAFE IN YOUR ENVIRONMENT?YES - HAS THE PATIENT BEEN EDUCATED REGARDING HIS/HER PLAN OF CARE?YES HAS THE PATIENT BEEN EDUCATED REGARDING PAIN, THE RISK FOR PAIN, THE IMPORTANCE OF EFFECTIVE PAIN MANAGEMENT, AND THE PAIN ASSESSMENT PROCESS?YES ADVANCE DIRECTIVE ADVANCE DIRECTIVE DISCUSSED WITH PATIENT:YES NO, DECLINED HOSPITALIZATION/MAJOR DIAGNOSTIC PROCEDURE CHILDBIRTH REVIEW OF SYSTEMS CONSTITUTIONAL: ANY RECENT FEVER NO . CHILLS NO . WEIGHT CHANGE OF UNKNOWN REASONS NO . MUSCULOSKELETAL: ANY UNUSUAL JOINT PAIN OR SWELLING NOT MENTIONED NO . SYSTEMIC LUPUS NO . ANY NEUROMUSCULAR DISORDER NOT MENTIONED NO . LYME DISEASE NO . GASTROENTEROLOGY: ANY NEW CHANGE IN BOWEL CONTROL? NO . HISTORY OF LIVER DISORDER NOT MENTIONED NO . HISTORY OF UNUSUAL ABDOMINAL PAIN OR CRAMPING NOT MENTIONED NO . NO CONSTIPATION. GENITOURINARY: ANY NEW CHANGE IN BLADDER CONTROL? NO . ANY RENAL/KIDNEY CONDITON NOT MENTIONED NO . NEUROLOGY: HISTORY OF TBI NOT MENTIONED NO . OTHER NEW NUMBNESS OR PAIN PATTERNS NOT MENTIONED NO . NEW ONSET DIZZINESS OR NEUROLOGICAL CHANGES NOT MENTIONED NO . HISTORY OF SEVERE HEADACHES NOT MENTIONED NO . HISTORY OF STROKE OR NEUROLOGICAL DISORDER NOT MENTIONED NO . CARDIOLOGY: HEART SURGERY NO . CONGESTIVE HEART FAILURE/FLUID OVERLOAD NOT MENTIONED NO . HISTORY OF CHEST PAIN,IRREGULAR HEART BEAT NOT MENTIONED NO . RESPIRATORY: SHORTNESS OF BREATH ON EXERTION, WHEEZES, UNUSUAL COUGH NOT MENTIONED NO . ENDOCRINOLOGY: ADRENAL GLAND OR THYROID DISORDERS NOT MENTIONED NO . UNUSUAL URINATION, DIZZINESS OR LETHARGY NOT MENTIONED NO . VITAL SIGNS WT 182.2 LBS, HT 64 IN, BMI 31.27 INDEX, BP 134/67 MM HG, HR 72 /MIN, RR 18 /MIN, TEMP 98.0 F, OXYGEN SAT % 98%, SAFE IN ENV? (Y/N) YES, NA INITIALS KS 11:33, REVIEWED BY: Gladis LOPEZ RN. EXAMINATION GENERAL EXAMINATION: GENERALNO ACUTE DISTRESS, WELL NOURISHED AND HYDRATED. PSYCHAPPROPRIATE MOOD AND AFFECT . LUNGS:CLEAR TO AUSCULTATION BILATERALLY, NO WHEEZES, RHONCHI, RALES. HEART:NO MURMURS, REGULAR RATE AND RHYTHM. BACK:POINT TENDER ALONG LUMBAR SPINE, STARTING SKIN SHOWS NO ERYTHEMA, ECCHYMOSIS, INCREASED WARMTH, AND/OR SKIN ERUPTIONS NOTED.. ASSESSMENTS INTERVERTEBRAL DISC DISORDER WITH RADICULOPATHY OF LUMBOSACRAL REGION - M51.17 (PRIMARY) TREATMENT INTERVERTEBRAL DISC DISORDER WITH RADICULOPATHY OF LUMBOSACRAL REGION START LYRICA CAPSULE, 75 MG, 1 CAPSULE, ORALLY, TWICE DAILY, 30 DAYS, 60 START DICLOFENAC SODIUM TABLET DELAYED RELEASE, 50 MG, 1 TABLET, ORALLY, THREE TIMES DAILY, 30 DAY(S), 90 STOP DICLOFENAC POTASSIUM TABLET, 50 MG, 1 TABLET, ORALLY, DAILY NEEDED NOTES: 40-YEAR-OLD FEMALE IN FOR INITIAL PAIN CONSULT REGARDING LOW BACK PAIN WITH RADICULOPATHY. GIVEN PRESENTING SYMPTOMS AND RESULTS OF PHYSICAL EXAMINATION RECOMMENDED STARTING LYRICA AND DICLOFENAC SODIUM WITH FOLLOW-UP IN ONE MONTH TO DETERMINE EFFICACY OF TREATMENT. PATIENT EXPRESSED UNDERSTANDING OF AND WAS IN AGREEMENT WITH TREATMENT PLAN. GIVEN TIME TO ASK QUESTIONS AND EXPRESS CONCERNS. CLINICAL NOTES: PATIENT DECLINED PRINTED MEDICATION INFORMATION. JYOTSNA OROZCO MA. PROCEDURE CODES [id number] ESTABILISHED PATIENT [facility] CHARGE DISPOSITION & COMMUNICATION FOLLOW UP 4 WEEKS (REASON: LOW BACK PAIN WITH RADICULOPATHY) ELECTRONICALLY SIGNED BY SOPHY JAY ON 03/18/2021 AT 12:30 PM EDT DISCLAIMER : THIS IS A VISIT SUMMARY EXTRACTED FROM THE [email or web address] CHART. IT IS NOT A COPY OF THE [email or web address] PROGRESS NOTE. [facility]
== END ==
LOC: M PAIN 11:15
PROVIDERS: ATTEND Family Medicine
DX: M51.17 Intervertebral disc disorders with radiculopathy, lumbosacral region (principal); G43.909 Migraine, unspecified, not intractable, without status migrainosus; F43.10 Post-traumatic stress disorder, unspecified; F41.9 Anxiety disorder, unspecified; F32.9 Major depressive disorder, single episode, unspecified; G47.30 Sleep apnea, unspecified; F90.9 Attention-deficit hyperactivity disorder, unspecified type; K58.9 Irritable bowel syndrome, unspecified; R32 Unspecified urinary incontinence; H93.19 Tinnitus, unspecified ear; Z79.899 Other long term (current) drug therapy; F17.210 Nicotine dependence, cigarettes, uncomplicated; Z88.2 Allergy status to sulfonamides

== ENCOUNTER → 2021-08-28 | Outpatient (CLI) | payer OTHER ==
--- NOTE | 2021-08-28 15:33 | REPVR ---
PROCEDURE INFORMATION: Exam: CT Maxillofacial Without Contrast, Sinus Exam date and time: 08/28/2021 2:55 PM Age: 40 years old Clinical indication: Pain; Other: Sinus; Additional info: Chronic sinusitis TECHNIQUE: Imaging protocol: CT Maxillofacial without contrast. Focus on the sinuses. Radiation optimization: All CT scans at this facility use at least one of these dose optimization techniques: automated exposure control; mA and/or kV adjustment per patient size (includes targeted exams where dose is matched to clinical indication); or iterative reconstruction. COMPARISON: CT Head without contrast 07/29/2020 7:03 PM FINDINGS: Frontal sinuses: There is minimal mucosal thickening in the left frontal sinus. The right frontal sinus is clear. There are no air-fluid levels. Ethmoid air cells: Normal. No air-fluid levels. Sphenoid sinuses: Normal. No air-fluid levels. Maxillary sinuses: An 18 mm mucous retention cyst is present in the right maxillary sinus. 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 There are no air-fluid levels. The ostiomeatal units are patent. Moderate mucosal thickening is present in the left maxillary sinus. Nasal cavity/Septum: Unremarkable. Orbital cavity: Orbits are normal. Globes are unremarkable. Bones/joints: Unremarkable. Soft tissues: Unremarkable. IMPRESSION: 1. No acute abnormality. 2. Chronic findings as discussed above. Electronically signed by: Phillip Ortega On 08/28/2021 15:32:38 PM
== END ==
LOC: M RAD 14:49
PROVIDERS: ATTEND Otolaryngology
DX: J32.0 Chronic maxillary sinusitis (principal)